=== PATIENT | female | born 1950 | race Caucasian/White ===

== ENCOUNTER 2017-05-09 06:32 | Day surgery (SDC) | payer MEDICARE ==
[~2017-05-09] VITALS: Ht 152.4 cm; Wt 73.3 kg
[~2017-05-09 06:32] MED LIST: ALLE24TA PO; ASPI81 PO; ATEN1TAB74 PO; CLOP75 PO; FLAX SEED OIL; PROT40TA PO; TELM40 PO; ZOCO80TA PO
[2017-05-09] MEDS ORDERED: GLUC15002 (07:08)
[2017-05-09] MEDS ORDERED: VENTAER INH (07:08)
[2017-05-09] MEDS ORDERED: FLUTI110I INH (07:08)
[2017-05-09] MEDS ORDERED: LEVO25TA4 PO (07:08)
[2017-05-09] MEDS ORDERED: B-2100TA (07:08)
[2017-05-09] MEDS ORDERED: PRAV40TA2 PO (07:08)
[2017-05-09] MEDS ORDERED: ASPI81CH CHEW (07:08)
[2017-05-09] MEDS ORDERED: GABA100C4 PO (07:08)
[2017-05-09] MEDS ORDERED: FLUT1SPR14 (07:08)
[2017-05-09] MEDS ORDERED: BUTACAP6 (07:08)
[2017-05-09] MEDS ORDERED: NITR0.4S SL (07:08)
[2017-05-09] MEDS ORDERED: ATEN50TA PO (07:08)
[2017-05-09 07:09] VITALS: BP 159/95; PULSE 64; RESP 16; TEMP 98.1; O2SAT 95
[2017-05-09] MEDS ORDERED: HEPARIN-NS/PF INJ 500 ML ONE (08:20)
[2017-05-09] MEDS ORDERED: methylPREDNISolone SOD SUCC 125 MG/2 ML VIAL ONE (08:34)
[2017-05-09] MEDS ORDERED: MIDAZOLAM HCL 2 MG/2 ML VIAL ONE (08:34)
[2017-05-09] MEDS ORDERED: diphenhydrAMINE HCL 50 MG/ML VIAL ONE (08:34)
[2017-05-09] MEDS ORDERED: LABETALOL HCL 100 MG/20 ML VIAL ONE (08:40)
[2017-05-09] MEDS ORDERED: MISC INFORMATION XX ONE (09:00)
[2017-05-09] MEDS ORDERED: ONDANSETRON HCL 4 MG/2 ML VIAL IV PRN (09:00)
[2017-05-09] MEDS ORDERED: ATROPINE SULFATE 1 MG/ML VIAL IV PRN (09:00)
[2017-05-09] MEDS ORDERED: SODIUM CHLOR 0.9% 250 ML INJ 250 ML IV PRN (09:00)
--- NOTE | 2017-05-09 09:01 | CATHPROC ---
[facility] HIS Report Study Information Study Number Admission Scheduled Start Study Start [id number] May 09 2017 6:32AM 05/09/2017 May 09 2017 7:55AM [place] Service Cardiac Catheterization Admit Source Facility Department Other [facility] - Account Service Representative Physician and Clinical Staff Initial Nba Castanon Welder/InstallerCriselda Quintero,RN Welder/Installer Hali Alejandro,RODNEY Other cathlab, cathlab Recorder Vanessa Fuentes,FISCAL AGENT TECH2 Scrub Yaniv Bishop RCIS(BS) Procedures Performed Procedure Location (Site) Vessel Name Coronary Angiograms LCA Left Coronary Coronary Angiograms RCA Right Coronary Equipment Time Screen Printing Stencil Preparer Description Size Mfg Part Number Used/Scraped TRANSDUCER, TRUWAVE [id number] 07:57 SANDERS HOWARD * Used W/STOCKCOCK *[id number] *[id number] *[id number] 08:46 DAIG/[employer] ANGIOSEAL, FR6 VIP FR 6 Used *[id number] 07:57 [employer] PACK, CCL CUSTOM * Used *[id number] 07:57 MEDLINE PACER PEN, SKIN DUAL W/ RULER * Used *[id number] 07:57 [employer] SHEATH, FR6.5 PRELUDE 11CM FR 6.5 038ACT Used *[id number] 07:57 [employer] WIRE, 3MMJ .035 180CM 180CM Used *[id number] 07:57 NAMIC MANIFOLD, 4 PORT * Used *[id number] 07:57 [employer] OMNIPAQUE, 350 MG, 100ML 100ML [id number] Used [id number] 07:57 [employer] BLANKET,WARM AIR CCL * Used *[id number] History: Current Medications Medication Dosage/Unit Route Frequency Last Date/Time Taken ASA Flovent PREDNISONE Statins (any) Neurontin Synthroid Beta Veronica History: Allergies Allergy Reaction Amoxicillin Rash Bactrim Rash Demerol Nausea/Vomiting Penicillin Sulfa NEOMYCIN SULFATE Swelling Egg Allergy Flu Vaccine History: Risk Factors Family History of Hypertension Dyslipidemia Previous ND Previous Heart Failure Premature CAD Yes Yes No No No Prior Valve Prior PCI Prior PCIDate Prior CABG Surgery No Yes 10/10/2008 No Cerebrovascular Peripheral Artery Chronic Lung On Dialysis Diabetes Disease Disease Disease No No No No No History: Stress Tests Stress or Imaging Studies Performed Yes Standard Exercise Stress Test No Stress Echo No Stress Test SPECT No Stress Test CMR Stress Test CMR Result Stress Test CMR Ischemia Risk/Extent Yes Positive High Cardiac CTA Coronary Calcium Score No No History: Other Disease Selection Items CAD Gerd HTN Labs Hgb (g/dl) Hct (%) RBC (MIL/MM3) WBC (l/cumm) Platelets (thousands) 11.60-17.00 35.00-51.00 4.00-5.90 4.00-11.00 150.00-450.00 13.9 41.3 4.5 6 226 Glucose (mg/dl) BUN (mg/dl) Creatinine (mg/dl) BUN:Creatinine (1:x) 74.00-106.00 7.00-18.00 0.50-1.30 10.00-20.00 90 16 21.0 0.8 Na (meq/l) K (meq/l) Cl (meq/l) CO2 (mmol/L) Ca (mg/dl) 136.00-145.00 3.50-5.10 98.00-107.00 21.00-32.00 8.50-10.10 144 4.2 102 24 9.7 PT (sec) INR (PTT:PT) 9.80-11.60 0.90-1.10 9.8 1 Medication Medication Total Dose (Bolus/Oral) Medication Total Dosage/Unit 1% XYLOCAINE 20 mL BENADRYL 25 mg LABETOLOL 20 mg SOLU-CORTEF 100 mg VERSED 2 mg Medications (Bolus/Oral) Medication Time Given Dosage/Unit Administered By Reason VERSED 05/09/2017 8:33:45 AM 2 mg Hali Alejandro 2 mg VERSED given in lab by Hali Alejandro, RN in Left Antecubital via Peripheral IV. Ordered by Nba Rivas. 1% XYLOCAINE 05/09/2017 8:34:20 AM 20 mL Criselda Patel 20 mL 1% XYLOCAINE given in lab by Criselda Patel, RODNEY via Subcutaneous. Ordered by Nba Hart. SOLU-CORTEF 05/09/2017 8:34:22 AM 100 mg Hali Alejandro 100 mg SOLU-CORTEF given in lab by Hali Alejandro, RN in Left Antecubital via Peripheral IV. Ordered by Nba Hart. BENADRYL 05/09/2017 8:35:22 AM 25 mg Javon Hali 25 mg BENADRYL given in lab by Hali Alejandro, RN in Left Antecubital via Peripheral IV. Ordered by Nba Hart. LABETOLOL 05/09/2017 8:42:48 AM 20 mg [place], Hali 20 mg LABETOLOL given in lab by Hali Alejandro, RN in Right Antecubital via Peripheral IV. Ordered b Nba Dye. Medication (Drip) Medication Time Given Dosage/Unit Concentration/Unit Diluent (ml) Solution IV Solutions 05/09/2017 8:16:17 AM 0 mL (IV) 500 NaCl .9 IV Solutions given in lab by Criselda Patel RN in Left Antecubital via Peripheral IV. Pump/Drip Jona w = 20 ml/hr using NaCl .9. Ordered by Nba Hart. Initial Case Assessment Cardiovascular HR NIBP 68 105/72 Edema Present Skin color Skin None Normal Warm Dry Circulatory - Right Pulses Dorsalis Pedis Femoral 3 d Scale (0,1,2,3,4,d) Circulatory - Left Pulses Dorsalis Pedis Femoral 3 d Scale (0,1,2,3,4,d) Neurological State Oriented to time-place- Alert Moves all extremities person Respiration - General Respiration Rate SpO2 (%) (B/min) 12 97 Final Case Assessment Cardiovascular HR NIBP 84 149/86 Edema Present Skin color Skin None Normal Warm Dry Circulatory - Right Pulses Dorsalis Pedis Femoral 3 d Scale (0,1,2,3,4,d) Circulatory - Left Pulses Dorsalis Pedis Femoral 3 d Scale (0,1,2,3,4,d) Neurological State Oriented to time-place- Alert Moves all extremities person Respiration - General Respiration Rate SpO2 (%) (B/min) 10 96 Chronological Log Time Study Chronological Log 8:16:07 Patient arrived via Bed. 8:16:08 Patient Name, D.O.B, / Armband Verified By R.N. 8:16:08 Consent signed by the physician and the patient and verified by the Account Service Representative staff. 8:16:09 Pre-op and post- op instructions given; patient acknowledges understanding of instructions. Verbal Stimulation=~VERBAL~ Physical Stimulation=~PHYSICAL~ Airway=~AIRWAY~ Respiration=~RESPIR ATION~ 8:16:09 TOTAL=~TOTAL~. (0=absent, 1=limited, 2=present) 8:16:10 Presedation assessment performed by Account Service Representative RN. 8:16:10 Immediate Presedation assesment performed by physician. 8:16:11 Patient has been NPO for More than 6Hrs. 8:16:13 Skin Breakdown- 8:16:14 Patient Warmer Placed on the Table. 8:16:15 Stephen Prominences Protected 8:16:16 A # ~SIZE~ IV was noted in the Antecubital (left). Grade = ~GRADE~ IV Solutions given in lab by Criselda Patel, RN in Left Antecubital via Peripheral IV. Pump/Dr ip Flow = 20 ml/hr using 8:16:17 NaCl .9. Ordered by Nba Hart. 8:16:17 History and physical on the chart or being dictated. Vitals capture started with the following parameters, Patient=Adult, Interval=5 min, Initial Pr zeutnm=732 mmHg, 8:17:27 Deflation Rate=5 mmHg, Cuff placed on Right Arm 8:18:54 HR=68 bpm, UMYC=613/72 mmhg, SpO2=97.0 %, Resp=12 B/min, Pain=0, Anali=10, Ellis=2 Assessment: Initial Case, HR=68 BPM, OQUQ=943/72 mmhg, Edema=None, Color=Normal, Skin = Warm, Dr y Right Pulses: Chidi Ped=3, Femoral=d 8:20:32 Left Pulses: Chidi Ped=3, Femoral=d Neurological: State=Alert, Ox3, MACIEL Respiration: Resp=12 B/min, SpO2=97 % 8:20:51 Reference ECG taken 8:23:29 HR=68 bpm, MXSN=807/91 mmhg, SpO2=98.0 %, Resp=16 B/min, Pain=0, Anali=10, Ellis=2 8:23:53 Bilateral groins prepped with 2% chlorhexidine, and with a 3 min. waiting time. 8:28:11 HR=65 bpm, VTBH=329/84 mmhg, SpO2=99.0 %, Resp=10 B/min, Pain=0, Anali=10, Ellis=2 8:29:33 Pressure channel 1 zeroed. 8:33:10 HR=61 bpm, AAIY=798/81 mmhg, SpO2=98.0 %, Resp=12 B/min, Pain=0, Anali=10, Ellis=2 8:33:45 2 mg VERSED given in lab by Hali Alejandro, RODNEY in Left Antecubital via Peripheral IV. Order ed by Nba Hart. Time Out. Correct patient, correct procedure,correct physician, power injector not loaded with c ontrast with surgical 8:33:54 team present. Time Out Concurred by MD, individual staff in procedure 8:34:19 Case Start 8:34:20 20 mL 1% XYLOCAINE given in lab by Criselda Patel, RODNEY via Subcutaneous. Ordered by Nba Hart. 100 mg SOLU-CORTEF given in lab by Hali Alejandro RN in Left Antecubital via Peripheral IV. Or dered by Tanner 8:34:22 Nba. 8:35:22 25 mg BENADRYL given in lab by Hali Alejandro RN in Left Antecubital via Peripheral IV. Or dered by Nba Hart. 8:37:05 Access site was Right Femoral Artery. 8:37:15 A SHEATH, FR6.5 PRELUDE 11CM FR 6.5 was advanced into the Fem Art (right) using the Modified Seldinger technique. A JL 4.0 INFINITI CATHETER FR 6 was advanced over a wire. OMNIPAQUE, 350 MG, 100ML 100ML was use d for 8:37:48 injections. 8:38:07 HR=68 bpm, ZIJT=155/81 mmhg, SpO2=98.0 %, Resp=14 B/min, Pain=0, Anali=10, Ellis=2 Recorded Pressure: Ao, HR=70, Condition=Condition 1 8:38:14 (Aorta) Ao 156/78/111 8:38:38 The LCA was injected and visualized at various angles. OMNIPAQUE, 350 MG, 100ML 100ML used. 8:40:14 Catheter was removed A JR 4.0 INFINITI CATHETER FR 6 was advanced over a wire. OMNIPAQUE, 350 MG, 100ML 100ML was use d for 8:40:51 injections. 20 mg LABETOLOL given in lab by Hali Alejandro, RODNEY in Right Antecubital via Peripheral IV. Orde red by Tanner 8:42:48 Nba. 8:43:15 The RCA was injected and visualized at various angles. OMNIPAQUE, 350 MG, 100ML 100ML used. 8:43:30 Catheter was removed 8:43:49 HR=78 bpm, KITE=077/86 mmhg, SpO2=96.0 %, Resp=16 B/min, Pain=0, Anali=10, Ellis=2 8:45:01 An injection in the Fem Art (right) was made through the SHEATH, FR6.5 PRELUDE 11CM FR 6.5. 8:45:38 Catheter(s) removed without difficulty 8:45:41 ANGIOSEAL, FR6 VIP FR 6 placement in the Fem Art (right) 8:46:50 Case End 8:46:52 Sterile dressing applied to site 8:46:53 No case complications noted. 8:46:54 Cine recording checked. 8:46:58 Bedside Report will be given. 8:46:59 Implantable Device card placed in patient's chart. 8:47:01 A Left and Right Heart Cath was performed. 8:47:04 Clinical correlaton risk stratification. 8:48:07 HR=84 bpm, FNET=588/86 mmhg, SpO2=96.0 %, Resp=10 B/min, Pain=0, Anali=10, Ellis=2 8:52:15 Vitals capture stopped. Assessment: Final Case, HR=84 BPM, DJZF=932/86 mmhg, Edema=None, Color=Normal, Skin = Warm, Dr y Right Pulses: Chidi Ped=3, Femoral=d 8:52:19 Left Pulses: Chidi Ped=3, Femoral=d Neurological: State=Alert, Ox3, MACIEL Respiration: Resp=10 B/min, SpO2=96 % 8:55:06 Patient moved to [facility] End Study - Contrast Media Used In Study Contrast Total Opened (mL) Total Used (mL) Total Wasted (mL) Omnipaque 55 55 0 End Study - Maximum Contrast Load Max Contrast Load (mL) 17.5 End Study - Radiation Exposure Fluoro Time (minutes) 1.2 End Study - Patient Disposition Complications Transferred To Telemetry Bed
--- NOTE | 2017-05-09 09:38 | MA ---
cc: PAMELA HART MD DATE 05/09/2017 PROCEDURE PERFORMED Cardiac catheterization. PROCEDURE The patient was prepped and draped in the usual fashion. A 6-Indonesian sheath was inserted percutaneously into the right femoral artery. Coronary angiography was done with Yo preformed catheters. RESULTS Aortic pressure was 156/78. This oracio to 175 during the procedure and 20 mg of labetalol were given for BP control. Left ventriculography was not done. CORONARY ANGIOGRAPHY The left main coronary demonstrated 10-20% stenosis in its distal portion. The left anterior descending artery arose from the left main. It bifurcated into two diagonal branches which were essentially normal. After the second diagonal branch was given off, a subtotal stenosis was present compromising the lumen by approximately 90-95%. At this point the left anterior descending artery was very small in diameter at approximately 1 mm or less. NAHUM-3 flow was present. No collateralization was noted. The left circumflex artery arose from left main. In the midportion a 30-40% stenosis was present. The remainder of the circumflex was normal. The right coronary was anatomically dominant. There were luminal irregularities, somewhat diffuse disease throughout the course of the artery. This compromised lumen by approximately 50%. At the posterolateral branch a 95% stenosis was present. At this point this branch was also a very small caliber artery, 1-mm or less. RESULTS 1. The patient demonstrates coronary disease as described above. Due to the small size of the LAD and posterolateral branch of the RCA. Medical management will be continued as both of them appear to be too small for mechanical intervention either percutaneously or surgically. 2. We do note that an intraluminal stent was present in the mid-circumflex artery which is widely patent. Pamela Hart MD DLW/SSB /8:57 AM /9:30 AM
[2017-05-09] MEDS ORDERED: IOHEXOL 350 MG/ML 100 ML BTL (for Cath Lab) OTHER ONE (14:45)
== END 2017-05-09 11:45 | disposition home or self-care (01) ==
LOC: HDOC 06:32 → HDIC 06:32 → HDOC 11:45
PROVIDERS: ATTEND Internal Medicine Cardiovascular Disease
DX: I25.10 Atherosclerotic heart disease of native coronary artery without angina pectoris (principal); I10 Essential (primary) hypertension; E78.5 Hyperlipidemia, unspecified; E03.9 Hypothyroidism, unspecified; J45.40 Moderate persistent asthma, uncomplicated; K21.9 Gastro-esophageal reflux disease without esophagitis; J42 Unspecified chronic bronchitis; R51 Headache; H18.20 Unspecified corneal edema; J30.9 Allergic rhinitis, unspecified; M47.812 Spondylosis without myelopathy or radiculopathy, cervical region; I77.1 Stricture of artery; Z95.5 Presence of coronary angioplasty implant and graft
CPT/HCPCS: 93454; C1760; C1769; C1893; G0269; J1200; J1644; J2250; J2930; Q9967